=== PATIENT | female | born 1950 | race Caucasian/White ===

== ENCOUNTER 2017-04-03 14:09 | Emergency (ER) | payer MEDICARE, OTHER ==
[2017-04-03 15:20] VITALS: BP 157/85
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
== END 2017-04-03 15:31 | disposition home or self-care (01) ==
LOC: ER 14:09
PROC: 0JQH0ZZ Repair Left Lower Arm Subcutaneous Tissue and Fascia, Open Approach (ICD-10-PCS; principal; 2017-04-03)
DX: S51.012A Laceration without foreign body of left elbow, initial encounter (principal); S93.432A Sprain of tibiofibular ligament of left ankle, initial encounter; I10 Essential (primary) hypertension; W00.1XXA Fall from stairs and steps due to ice and snow, initial encounter; Y92.008 Other place in unspecified non-institutional (private) residence as the place of occurrence of the external cause